=== PATIENT | female | born 1985 | race Caucasian/White ===

== ENCOUNTER 2022-08-29 18:03 | Emergency (ER) | payer MEDICAID ==
[~2022-08-29] VITALS: Ht 162.6 cm; Wt 91.0 kg
[2022-08-29 18:05] VITALS: BP 138/84
[2022-08-29] MEDS ORDERED: PHENYLEPHRINE HCL 1% 15 ML NASAL SPRAY BOTHNSTRLS ONE (18:45)
== END 2022-08-29 20:01 | disposition home or self-care (01) ==
LOC: ER 18:03
DX: R04.0 Epistaxis (principal)
CPT/HCPCS: 99283

== ENCOUNTER 2023-02-02 10:29 | Emergency (ER) | payer MEDICAID, OTHER ==
[~2023-02-02] VITALS: Ht 160 cm; Wt 82.0 kg
[2023-02-02 10:41] VITALS: BP 177/102
[2023-02-02] MEDS ORDERED: IPRATROPIUM BROMIDE (0.02%) 0.5MG/2.5ML NEB HHN ONE (14:30)
[2023-02-02] MEDS ORDERED: ALBUTEROL (0.083%) 2.5MG/3ML NEB HHN ONE (14:30)
[2023-02-02] MEDS ORDERED: P50 MT (17:01)
[2023-02-02] MEDS ORDERED: ALBU6.7H3 INH (17:01)
== END 2023-02-02 17:47 | disposition home or self-care (01) ==
LOC: ER 10:29
DX: J98.01 Acute bronchospasm (principal); Z20.822 Contact with and (suspected) exposure to COVID-19
CPT/HCPCS: 71046; 87426; 94640; 99284; C9803; Z7610